=== PATIENT | male | born 1980 | race African-American/Black ===

== ENCOUNTER 2016-12-16 14:08 | Emergency (ER) | payer SELFPAY ==
[~2016-12-16] VITALS: Ht 185.4 cm; Wt 102.1 kg
[2016-12-16] MEDS ORDERED: NKM (14:22)
[2016-12-16] MEDS ORDERED: Ketorolac 30mg Inj IV ONE (14:45)
[2016-12-16] MEDS ORDERED: Ketorolac 30mg Inj IM ONE (15:00)
[2016-12-16 16:06] LABS: APPEARANCE,URINE CLEAR; KETONES,URINE NEGATIVE (NEGATIVE); LEUKOCYTE ESTERASE ,URINE NEGATIVE (NEGATIVE); NITRITE,URINE NEGATIVE (NEGATIVE); PH,URINE 6 (4.5-8.0); PROTEIN,URINE NEGATIVE (NEGATIVE); UROBILINOGEN,URINE NORMAL MG/DL (0.0-1.0)
[2016-12-16] MEDS ORDERED: FLOMAX0.4 MG ORAL (16:29)
[2016-12-16] MEDS ORDERED: IBUPROFEN600 MG ORAL (16:29)
[2016-12-16 16:39] VITALS: BP 99/67
--- NOTE | 2016-12-16 20:27 | Emergency Room Report ---
History of Present Illness General Chief Complaint: Abdominal Pain Source: Patient Present Illness HPI The patient is a 36-year-old male presenting for left lower back pain which radiates to the mid lower abdomen. It is described as a 7/10 sharp sensation. It does not radiate. There is no known provoking or relieving factors. It appears to be random.Symptoms began one week prior. Pt denies other symptoms including N, V, F, chills, dysuria, hematuria, penile DC Allergies: Coded Allergies: No Known Allergies (Unverified , 12/16/16) Patient History Past Medical History: see triage record Pertinent Family History: none Reviewed Nursing Documentation: PMH: Agreed, PSxH: Agreed Nursing Documentation-PMH Hx Neurological Problems: Yes Review of Systems All Other Systems: negative except mentioned in HPI Physical Exam Vital Signs Date Time Temp Pulse Resp B/P Pulse Ox O2 Delivery O2 Flow Rate FiO2 12/16/16 14:14 98.1 83 16 115/70 99 Room Air Sp02 EP Interpretation: reviewed, normal General Appearance: no apparent distress, alert, GCS 15, non-toxic Head: normocephalic, atraumatic Eyes: bilateral eye PERRL, bilateral eye normal inspection ENT: hearing grossly normal, normal pharynx, no angioedema, normal voice Neck: full range of motion, supple/symm/no masses Respiratory: chest non-tender, lungs clear, normal breath sounds, speaking full sentences Gastrointestinal: normal inspection, normal bowel sounds, no mass, no guarding Genitourinary: normal inspection, no CVA tenderness Musculoskeletal: back normal, gait/station normal, normal range of motion, non- tender Neurologic: alert, oriented x3, responsive, motor strength/tone normal, sensory intact, speech normal Psychiatric: judgement/insight normal, memory normal, mood/affect normal, no suicidal/homicidal ideation Skin: normal color, no rash, warm/dry, well hydrated Lymphatic: no adenopathy Medical Decision Making PA Attestation Dr. Andres is my supervising physician. Patient management was discussed with my supervising physician Diagnostic Impression: Primary Impression: Renal lithiasis ER Course The patient is a 36-year-old male presenting for left lower back pain which radiates to the mid lower abdomen Differential diagnoses considered include but not limited to gastroenteritis, pancreatitis, appendicitis, UTI, renal lithiasis, pyelonephritis PE: Vitals WNL. NAD. Abdomen: Normal appearance. Non distended. No ecchymosis. Normal BS. Non TTP. No McBurney point tenderness. No guarding. No CVA tenderness Urinalysis shows no signs of infection or hematuria. Patient is given Toradol for pain and is feeling much better Patient discharged home with prescription for Flomax and Motrin for probable kidney stones. ER precautions are given and the patient will followup with PMD Laboratory Tests Test 12/16/16 15:24 Urine Color Yellow Urine Appearance Clear Urine pH 6 (4.5-8.0) Urine Specific [place] 1.020 (1.005-1.035) Urine Protein Negative (NEGATIVE) Urine Glucose (UA) Negative (NEGATIVE) Urine Ketones Negative (NEGATIVE) Urine Occult Blood Negative (NEGATIVE) Urine Nitrite Negative (NEGATIVE) Urine Bilirubin Negative (NEGATIVE) Urine Urobilinogen Normal MG/DL (0.0-1.0) Urine Leukocyte Esterase Negative (NEGATIVE) Urine Opiates Screen Negative (NEGATIVE) Urine Barbiturates Screen Negative (NEGATIVE) Phencyclidine (PCP) Screen Negative (NEGATIVE) Urine Amphetamines Screen Negative (NEGATIVE) Urine Benzodiazepines Screen Negative (NEGATIVE) Urine Cocaine Screen Negative (NEGATIVE) Urine Marijuana (THC) Screen Positive (NEGATIVE) H Lab Results Impression UA: no signs of infection. No hematuria. Last Vital Signs Date Time Temp Pulse Resp B/P Pulse Ox O2 Delivery O2 Flow Rate FiO2 12/16/16 16:39 97.6 74 16 99/67 97 Room Air Status: improved Disposition: HOME, SELF-CARE Condition: Improved Scripts Ibuprofen* (MOTRIN*) 600 Mg Tablet 600 MG ORAL Q8H Y for For Pain, #30 TAB 0 Refills Prov: TERESAANGIULIANA P.A. 12/16/16 Tamsulosin HCl (Flomax) 0.4 Mg Cap.er.24h 0.4 MG ORAL DAILY, #10 CAP Prov: TERESAANGIULIANA P.A. 12/16/16 Patient Instructions: Kidney Stones Additional Instructions: I discussed my findings with the patient. All questions and concerns have been answered. Treatment and medication compliance have been addressed. I advised the patient that they need to follow up with PMD in 3-5 days. Return to ED if symptoms worsen, new symptoms arise, or if needed for any reason. Patient verbalized understanding of discharge instructions. GIULIANA SMITH.A. Dec 16, 2016 20:27
== END 2016-12-16 16:43 | disposition home or self-care (01) ==
LOC: EMR 15:15
DX: N20.0 Calculus of kidney (principal)
CPT/HCPCS: 80300; 81003; 96372; 99284; J1885

== ENCOUNTER 2018-02-09 23:55 | Emergency (ER) | payer OTHER ==
[~2018-02-09] VITALS: Ht 182.9 cm; Wt 90.7 kg
[~2018-02-09 23:55] MED LIST: FLOMAX0.4 MG ORAL; IBUPROFEN600 MG ORAL; NKM
[2018-02-10] MEDS ORDERED: AMOXICILLIN500 MG ORAL
[2018-02-10 00:05] VITALS: BP 122/63
--- NOTE | 2018-02-10 00:46 | Emergency Room Report ---
History of Present Illness General Chief Complaint: Skin Rash/Abscess Source: Patient Present Illness HPI 37-year-old male with no medical problems presents with itchy rash that started about an hour ago after he ate a nut bar at work He reports he's had itchiness in his mouth in the past when he's eaten nuts, but currently he has no oral symptoms, denies sore throat, throat closing sensation, shortness of breath, wheezing, abdominal pain, nausea, any other symptoms Allergies: Coded Allergies: No Known Allergies (Unverified , 12/16/16) Patient History Past Medical History: see triage record Reviewed Nursing Documentation: PMH: Agreed; PSxH: Agreed Nursing Documentation-PMH Past Medical History: No Stated History Hx Neurological Problems: Yes Review of Systems All Other Systems: negative except mentioned in HPI Physical Exam Vital Signs Date Time Temp Pulse Resp B/P (MAP) Pulse Ox O2 Delivery O2 Flow Rate FiO2 02/09/18 23:57 98.0 79 14 122/63 98 Room Air 98.1 Sp02 EP Interpretation: reviewed, normal General Appearance: no apparent distress, alert, non-toxic Head: normocephalic Eyes: bilateral eye normal inspection, bilateral eye PERRL, bilateral eye EOMI ENT: normal ENT inspection, hearing grossly normal, normal pharynx, no angioedema, normal voice, moist mucus membranes Neck: normal inspection, full range of motion, supple, supple/symm/no masses Respiratory: chest non-tender, lungs clear, normal breath sounds, chest symmetrical, palpation of chest normal Cardiovascular #1: normal peripheral pulses, regular rate, rhythm Cardiovascular #2: 2+ radial (R), 2+ radial (L) Gastrointestinal: normal inspection, non tender, soft, no mass, no guarding, no rebound Rectal: deferred Genitourinary: normal inspection, no CVA tenderness Musculoskeletal: back normal, gait/station normal, normal range of motion Neurologic: alert, responsive, fermentation scientist III-XII nml as tested, motor strength/tone normal, sensory intact, speech normal Psychiatric: judgement/insight normal, mood/affect normal Skin: normal color, warm/dry, normal turgor, rash - Hives like pruritic, red, raised rash on bilateral arms full R surface, spares palms, also not noted on medial thighs Lymphatic: no adenopathy Medical Decision Making Diagnostic Impression: Primary Impression: Hives ER Course Patient with isolated hives after eating nuts, has never had an anaphylactic reaction in the past, in 2 days reaction does not seem to be anaphylactic, but is an allergic reaction to nuts, which she's had in the past Given steroids, Benadryl, discharged with instructions to follow-up with PMD for allergy testing and to avoid nuts in the meantime Also given an EpiPen prescription to keep and take as needed if he develops throat closing, trouble breathing or loss of consciousness or other severe allergy symptoms. Last Vital Signs Date Time Temp Pulse Resp B/P (MAP) Pulse Ox O2 Delivery O2 Flow Rate FiO2 02/10/18 00:05 98.1 79 14 122/63 98 Room Air 98.1 Disposition: HOME, SELF-CARE Condition: Stable Referrals: [facility],REFERRING (PCP) IAN PALMER M.D February 10, 2018 00:46
[2018-02-10] MEDS ORDERED: EPIPEN 2-P0.3 MG/0.3 IM (00:48)
[2018-02-10] MEDS ORDERED: BENADRYL25 M3 PO (00:48)
[2018-02-10] MEDS ORDERED: PREDNISONE20 MG ORAL (00:48)
[2018-02-10 01:10] VITALS: BP 0/0
== END 2018-02-10 01:10 | disposition home or self-care (01) ==
LOC: EMR 02-10 00:12
DX: L50.9 Urticaria, unspecified (principal)
CPT/HCPCS: 99282; J7512